=== PATIENT | female | born 1955 | race Caucasian/White ===

== ENCOUNTER → 2016-09-02 15:27 | Outpatient (CLI) | payer BC ==
[2012-01-16 12:48] VITALS: BMI 28.7
== END | disposition home or self-care (01) ==
LOC: D.US 15:27
DX: M79.604 Pain in right leg (principal); R60.0 Localized edema

== ENCOUNTER → 2017-01-17 13:56 | Outpatient (CLI) | payer BC ==
[2012-01-16 12:48] VITALS: BMI 28.7
== END | disposition home or self-care (01) ==
LOC: D.MAMMO 13:56
DX: Z12.31 Encounter for screening mammogram for malignant neoplasm of breast (principal)

== ENCOUNTER → 2018-01-27 19:59 | Outpatient (CLI) | payer BC ==
[2012-01-16 12:48] VITALS: BMI 28.7
== END | disposition home or self-care (01) ==
LOC: D.MAMMO 09:45
DX: Z12.31 Encounter for screening mammogram for malignant neoplasm of breast (principal)

== ENCOUNTER → 2018-04-09 14:54 | Outpatient (CLI) | payer BC ==
[2012-01-16 12:48] VITALS: BMI 28.7
== END | disposition home or self-care (01) ==
LOC: D.US 14:54
DX: M79.605 Pain in left leg (principal); R60.0 Localized edema